=== PATIENT | male | born 1985 | race Caucasian/White ===

== ENCOUNTER → 2019-12-18 | Day surgery (SDC) | payer MEDICAID ==
[~2019-12-18] VITALS: Ht 180.3 cm; Wt 73.0 kg
[~2019-12-18] MED LIST: ACETAMINOPHEN 325 MG TABLET PO PRN; ALBUTEROL/IPRATROPIUM 2.5MG/0.5MG, 3 ML NPPB PRN; BUPIVACAINE/PF 0.25% ONE; BUPIVACAINE/PF 0.5% ONE; CHLORHEXIDINE 15 ML UDC MM STA; DEXAMETHASONE 4 MG/ML, 1ML ONE; DIAZEPAM 5 MG/ML, 2ML IVPush PRN; DIPHENHYDRAMINE 50 MG/ML, 1ML IVPush PRN; DIVA500T2 PO; DOXE100C PO; EPHEDRINE 50 MG/ML, 1ML IM PRN; EPHEDRINE 50 MG/ML, 1ML IVPush PRN; EPINEPHRINE 1 MG/ML, 1ML ONE; FAMOTIDINE 20 MG/2 ML IVPush ONE; FENTANYL PF 100 MCG/2ML IV PRN; FENTANYL PF 100 MCG/2ML ONE; GLYCOPYRROLATE 0.2MG/1ML, 5ML ONE; HALOPERIDOL 5 MG/ML IV PRN; HYDROcodone/APAP 7.5-325MG/15ML UDC PO PRN; HYDROmorphone 1 MG/ML, 1ML INJ IVPush PRN; KETOROLAC 30 MG/1 ML IVPush PRN; LABETALOL 5MG/ML, 20ML IV PRN; LACTATED RINGERS 1,000 ML IV ONE; LIDOCAINE 1%, 20ML ONE; LIDOCAINE-MPF 2% ,5ML ONE; LORazepam 2 MG/ML, 1ML IVPush PRN; MEPERIDINE/PF 25MG/0.5ML IVPush PRN; METOCLOPRAMIDE 5 MG/ML, 2ML IVPush ONE; METOCLOPRAMIDE 5 MG/ML, 2ML IVPush PRN; MIDAZOLAM 1 MG/ML, 2ML IV PRN; MIDAZOLAM 1 MG/ML, 2ML ONE; OLAN20TA14 PO; ONDANSETRON 2MG/ML, 2ML IVPush PRN; OXYcodone 5 MG/5 ML ORAL.SOL UDC PO PRN; PROPOFOL 10 MG/ML, 20ML ONE; ROCURONIUM 10MG/ML,5ML ONE; SODIUM CITRATE/CITRIC ACID 30 ML UDC PO ONE; hydrALAzine 20 MG/ML, 1ML IV PRN
[2019-12-18 08:17] VITALS: BP 106/71
== END | disposition home or self-care (01) ==
LOC: OR 07:34
PROVIDERS: ATTEND Surgery Surgery of the Hand
DX: S66.124A Laceration of flexor muscle, fascia and tendon of right ring finger at wrist and hand level, initial encounter (principal); Z53.8 Procedure and treatment not carried out for other reasons; Z11.59 Encounter for screening for other viral diseases; F17.210 Nicotine dependence, cigarettes, uncomplicated; S66.127A Laceration of flexor muscle, fascia and tendon of left little finger at wrist and hand level, initial encounter; S66.122A Laceration of flexor muscle, fascia and tendon of right middle finger at wrist and hand level, initial encounter; X58.XXXA Exposure to other specified factors, initial encounter; Y93.89 Activity, other specified; Y92.89 Other specified places as the place of occurrence of the external cause; Y99.8 Other external cause status; Z79.899 Other long term (current) drug therapy; Z72.89 Other problems related to lifestyle
CPT/HCPCS: 87635; J2250; J3010; J7120; J0171; J1100; J2704; J3490